=== PATIENT | female | born 1960 | race Caucasian/White ===

== ENCOUNTER 2017-05-07 21:32 | Emergency (ER) | payer MEDICARE, OTHER ==
[2017-05-07 21:41] VITALS: BP 132/77
--- NOTE | 2017-05-07 22:20 | UC ---
Kassandra White Edward, scribed for Bhavin Oliver MD on 05/07/17 at 2147 . Upper Extremity HPI - HPI Summary HPI Summary: 57 y/o female presents to [facility] c/o intermittent upper right arm pain starting last night. The episodes last for seconds. Pain starts in the R shoulder and is aggravated with movement. The pain is described as a pain that "goes down the vein". Associated sx: ankle edema. Denies tingling/numbness in fingers. She denies injury to the arm. Denies SOB, N/V, CP, and diaphoresis. SHx right sided rotator cuff sx x2. PMHx DM. FHx [place] - father (in 40' s and at 51) and grandmother. Former smoker. - History of Current Complaint Chief Complaint: UCUpperExtremity Stated Complaint: ARM PAIN Hx Obtained From: Patient Onset/Duration: Sudden Onset, Lasting Days - Last night Location Of Pain: Is Discrete @ - Upper R arm, Radiates To - Down arm Aggravating Factor(s): Movement Associated Signs And Symptoms: Positive: Swelling - Ankle. Negative: Numbness/ Tingling - Allergies/Home Medications Allergies/Adverse Reactions: Allergies Allergy/AdvReac Type Severity Reaction Status Date / Time Bee Venom Allergy Swelling Verified 07/21/15 12:35 Ciprofloxacin [From Cipro] Allergy Hives Verified 07/21/15 12:35 Gadolinium Allergy Hives Verified 07/21/15 12:57 Iodinated Diagnostic Agents Allergy Unknown Verified 07/14/15 13:24 Reaction Details Sulfa Antibiotics Allergy Hives Verified 07/21/15 12:35 Home Medications: Home Medications Dulaglutide [Trulicity] 0.75 mg SC 05/07/17 [History] Sitagliptin-Metformin HCl [Janumet 50-1000 mg] 1 tab PO 05/07/17 [History] PMH/Surg Hx/FS Hx/Imm Hx Previously Healthy: No Endocrine History: Diabetes Cardiovascular History: Hypertension Psychological History: Anxiety - Surgical History Surgical History: Yes Surgery Procedure, Year, and Place: KNEE REPLACEMENT, SHOULDER RT X2, BIOPSY LT WRIST - Family History Known Family History: Positive: Cardiac Disease - [place] - father and grandmother - Social History Alcohol Use: Occasionally Alcohol Amount: 3-4 GLASSES RED WINE WEEKLY Substance Use Type: Sedatives, Prescribed Substance Use Comment - Amount & Last Used: XANAX DAILY Smoking Status (MU): Former Smoker Amount Used/How Often: 3-4 CIGARETTES DAILY X 35 YEARS Have You Smoked in the Last Year: Yes Household Exposure Type: Cigarettes - Immunization History Most Recent Influenza Vaccination: 07/12 Most Recent Tetanus Shot: UP TO DATE PER DR CONRAD Most Recent Pneumonia Vaccination: NEVER Review of Systems Constitutional: Negative Skin: Negative Eyes: Negative ENT: Negative Respiratory: Negative - No SOB Cardiovascular: Negative - No CP Gastrointestinal: Negative Genitourinary: Negative Motor: Negative Neurovascular: Negative Musculoskeletal: Edema - Ankle, Myalgia - Upper R arm pain Neurological: Negative - No numbness/tingling Psychological: Negative All Other Systems Reviewed And Are Negative: Yes Physical Exam Triage Information Reviewed: Yes Vital Signs: Initial Vital Signs Temp 97.6 F 05/07/17 21:36 Pulse 89 05/07/17 21:36 Resp 20 05/07/17 21:36 BP 132/77 05/07/17 21:36 Pulse Ox 97 05/07/17 21:36 Vital Signs Reviewed: Yes - Additional Comments The patient is well-nourished in no acute distress and in no acute pain. The skin is warm and dry and skin color reflects adequate perfusion. HEENT: The head is normocephalic and atraumatic. The pupils are equal and reactive. The conjunctivae are clear and without drainage. Nares are patent and without drainage. Mouth reveals moist mucous membranes and the throat is without erythema and exudate. The external ears are intact. The ear canals are patent and without drainage. The tympanic membranes are intact. Neck is supple with full range of motion and non-tender. There are no carotid bruits. There is no neck vein distension. Respiratory: Chest is non-tender. Lungs are clear to auscultation and breath sounds are symmetrical and equal. Cardiovascular: Hear is regular rate and rhythm. There is no murmur or rub auscultated. There is no peripheral edema and pulses are symmetrical and equal. Abdomen: The abdomen is soft and non-tender. There are normal bowel sounds heard in all four quadrants and there is no organomegaly palpated. Musculoskeletal: There is no back pain noted. Extremities are non-tender with full range of motion. There is good capillary refill. There is ankle edema and no calf tenderness elicited. There is no reproducible pain in the arm and no reproducible chest wall pain. Neurological: Patient is alert and oriented to person, place and time. The patient has symmetrical motor strength in all four extremities. Cranial nerves are grossly intact. Deep tendon reflexes are symmetrical and equal in all four extremities. Psychiatric: The patient has an appropriate affect and does not exhibit any anxiety or depression. Diagnostics - EKG Cardiac Rate: NL Cardiac Rhythm: Sinus: Normal - 21:45 - NSR @ 78 bpm. Old inferior wall infarct. No change from 07/14/15 Upper Extremity Course/Dx - Course Course Of Treatment: 57 y/o female presents to [facility] c/o intermittent upper right arm pain for several days. The episodes last for seconds. Pain is aggravated with movement. The pain is described as a pain that "goes down the vein". Associated sx: ankle edema. Denies tingling/numbness in fingers. She denies injury to the arm. Denies SOB, N/V, CP. SHx right sided rotator cuff sx x2. PMHx DM. FHx [place] - father (in 40' s and at 51) and grandmother. Former smoker. EKG at 21:45 shows NSR @ 78 bpm, old inferior wall infarct with no significant change from 07/14/15. Pt will be d/c and instructed to go to ED for further workup. Recommend troponin drawn. - Differential Dx/Diagnosis Differential Diagnosis/HQI/PQRI: Other - mi, cervical radiculopathy, muscle skeletal pain, obese, DM, elevated triglycerides Provider Diagnoses: R arm pain Discharge - Discharge Plan Condition: Stable Disposition: OTHER Discharge Disposition Comment: pt was advised to go to [facility] [place] Patient Education Materials: Arm Pain (ED) Referrals: Regina Conrad MD [Primary Care Provider] - Additional Instructions: Pt is instructed to go to the ED for further workup. Recommend troponin drawn. The documentation as recorded by the Kassandra chen Edward accurately reflects the service I personally performed and the decisions made by , Bhavin Oliver MD.
== END 2017-05-07 22:24 ==
LOC: UCEAST 21:32
DX: M79.601 Pain in right arm (principal); E11.9 Type 2 diabetes mellitus without complications; I10 Essential (primary) hypertension; F17.210 Nicotine dependence, cigarettes, uncomplicated; F41.9 Anxiety disorder, unspecified; Z88.3 Allergy status to other anti-infective agents; Z88.2 Allergy status to sulfonamides; Z91.030 Bee allergy status; Z96.659 Presence of unspecified artificial knee joint
CPT/HCPCS: 93005; 99211; G0463

== ENCOUNTER 2017-05-07 22:41 | Emergency (ER) | payer MEDICARE, OTHER ==
--- NOTE | 2017-05-07 23:29 | ED ---
Kalin White SooYoung, scribed for Merlin Larson MD on 05/07/17 at 2321 . Upper Extremity Pain - HPI Summary HPI Summary: A 57 y/o F referred by TIFFANYE presents to ED with c/o shooting, intermittent RUE pain onset approx 26 hours ago. Pain described as sharp, and episodes are brief. Last episode occurred while in ED. Has not taken any OTC meds. Pert PMHx : shoulder surgery. - History of Current Complaint Chief Complaint: EDExtremityUpper Stated Complaint: PAIN IN RIGHT ARM Time Seen by Provider: 05/07/17 23:13 Hx Obtained From: Patient Onset/Duration: Still Present Timing: Intermittent, Lasting Minutes Severity Initially: Moderate Severity Currently: Moderate Pain Location: Arm - RUE from elbow to shoulder Character: Sharp - Allergies/Home Medications Allergies/Adverse Reactions: Allergies Allergy/AdvReac Type Severity Reaction Status Date / Time Bee Venom Allergy Swelling Verified 07/21/15 12:35 Ciprofloxacin [From Cipro] Allergy Hives Verified 07/21/15 12:35 Gadolinium Allergy Hives Verified 07/21/15 12:57 Iodinated Diagnostic Agents Allergy Unknown Verified 07/14/15 13:24 Reaction Details Sulfa Antibiotics Allergy Hives Verified 07/21/15 12:35 PMH/Surg Hx/FS Hx/Imm Hx Previously Healthy: No Endocrine/Hematology History: Reports: Hx Diabetes Cardiovascular History: Reports: Hx Hypertension, Other Cardiovascular Problems/ Disorders - HX HIGH TRIGLYCERIDES Denies: Hx Pacemaker/ICD History: Denies: Hx Renal Disease Musculoskeletal History: Reports: Hx Arthritis - KNEES, RIGHT SHOULDER Sensory History: Denies: Hx Contacts or Glasses, Hx Hearing Aid Opthamlomology History: Denies: Hx Contacts or Glasses Psychiatric History: Reports: Hx Anxiety Denies: Hx Panic Disorder, Other Psychiatric Issues/Disorders - Cancer History Hx Chemotherapy: No Hx Radiation Therapy: No - Surgical History Surgery Procedure, Year, and Place: KNEE REPLACEMENT, SHOULDER RT X2, BIOPSY LT WRIST Hx Anesthesia Reactions: No Infectious Disease History: No Infectious Disease History: Denies: Traveled Outside the [place] in Last 30 Days - Family History Known Family History: Positive: Cardiac Disease - [place] - father and grandmother - Social History Occupation: Employed Full-time Lives: With Family Alcohol Use: None Alcohol Amount: 3-4 GLASSES RED WINE WEEKLY Substance Use Type: Reports: Prescribed, Sedatives Substance Use Comment - Amount & Last Used: XANAX DAILY Hx Tobacco Use: Yes Smoking Status (MU): Former Smoker Amount Used/How Often: 3-4 CIGARETTES DAILY X 35 YEARS Have You Smoked in the Last Year: Yes Review of Systems Negative: Fever Positive: Other - pos: RUE pain All Other Systems Reviewed And Are Negative: Yes Physical Exam Triage Information Reviewed: Yes Vital Signs On Initial Exam: Initial Vitals Temp Pulse Resp BP Pulse Ox 97.4 F 82 20 120/80 97 05/07/17 22:56 05/07/17 22:56 05/07/17 22:56 05/07/17 22:56 05/07/17 22:56 Vital Signs Reviewed: Yes Appearance: Positive: Well-Appearing, No Pain Distress Skin: Positive: Warm Head/Face: Positive: Normal Head/Face Inspection Eyes: Positive: RAJAN ENT: Positive: Hearing grossly normal Neck: Positive: Supple Respiratory/Lung Sounds: Positive: Clear to Auscultation, Breath Sounds Present Cardiovascular: Positive: RRR Abdomen Description: Positive: Nontender, Soft Bowel Sounds: Positive: Present Musculoskeletal: Positive: Strength/ROM Intact Neurological: Positive: Sensory/Motor Intact, Normal Gait Psychiatric: Positive: Affect/Mood Appropriate - [place] Coma Scale Coma Scale Total: 15 Diagnostics - Vital Signs Vital Signs Temp Pulse Resp BP Pulse Ox 05/07/17 22:56 97.4 F 82 20 120/80 97 - Laboratory Result Diagrams: 05/08/17 00:15 05/08/17 00:15 Lab Statement: Any lab studies that have been ordered have been reviewed, and results considered in the medical decision making process. - Radiology CXR Xray Interpretation: No Acute Changes Radiology Interpretation Completed By: ED Physician Re-Evaluation - Re-Evaluation 1 Re-Evaluation Time: 01:01 Comment: Discussing results with pt. Will D/C home. Course/Dx - Course Course Of Treatment: Pt is a 57 y/o F referred by MAGY presenting with shooting, intermittent RUE pain onset approx 26 hours ago. Pain described as sharp, and episodes are brief. Last episode occurred while in ED. Has not taken any OTC meds. Pert PMHx: shoulder surgery. Blood work results are without any significant abnormalities. CXR is neg. Will D/C home to f/u with PCP. - Diagnoses Provider Diagnoses: Arm pain Discharge - Discharge Plan Condition: Stable Disposition: HOME Patient Education Materials: Arm Pain (ED) Referrals: Regina Conrad MD [Primary Care Provider] - 2 Days Additional Instructions: Follow up with your primary care provider in the next two days. Please return to Emergency Department with new or worsening symptoms. The documentation as recorded by the Kalin chen SooYoung accurately reflects the service I personally performed and the decisions made by me, Merlin Larson MD.
[2017-05-08 00:27] LABS: Hematocrit 43 % (35-47); Hemoglobin 14.1 g/dl (12.0-16.0); Mean Corpuscular HGB Conc 33 g/dl (31-36); Mean Corpuscular Hemoglobin 29 pg (27-31); Mean Corpuscular Volume 88 fL (80-97); Mean Platelet Volume 9 um3 (7.4-10.4); Red Blood Count 4.84 10^6/ul (4.0-5.4); Red Cell Distribution Width 14 % (10.5-15); White Blood Count 13.4 10^3/ul (3.5-10.8)
[2017-05-08 00:40] LABS: BUN/Creatinine Ratio 22.2 (8-20); Blood Urea Nitrogen 14 mg/dL (6-24); CO2 Carbon Dioxide 25 mmol/L (22-32); Calcium 9.7 mg/dL (8.6-10.3); Chloride 103 mmol/L (101-111); EGFR African American 124.4 (>60); EGFR Non-African American 96.7 (>60); Glucose 112 mg/dL (70-100); Sodium 136 mmol/L (133-145)
[2017-05-08 00:42] LABS: Troponin I 0.01 ng/mL (<0.04)
[2017-05-08 00:56] LABS: Anion Gap 8 mmol/L (2-11)
[2017-05-08 01:18] VITALS: BP 121/72
--- NOTE | 2017-05-08 07:51 | RAD ---
INDICATION: Chest pain COMPARISON: September 30, 2014 TECHNIQUE: PA and lateral dual-energy views were obtained. FINDINGS: Bones/Soft Tissues: There are no acute bony findings. Cardiomediastinal: The cardiomediastinal silhouette is normal. Lungs: There are no infiltrates. Pleura: There are no pleural effusions. Other: None IMPRESSION: NO ACTIVE DISEASE
== END 2017-05-08 01:18 | disposition home or self-care (01) ==
LOC: ED 22:41
DX: M79.601 Pain in right arm (principal); R07.9 Chest pain, unspecified; F17.210 Nicotine dependence, cigarettes, uncomplicated
CPT/HCPCS: 36415; 71020; 80048; 84484; 85025; 99282